=== PATIENT | male | born 1940 | race Caucasian/White ===

== ENCOUNTER → 2016-07-17 | Outpatient (CLI) | payer OTHER | LOC: BHFA 12:45 | PROVIDERS: ATTEND Internal Medicine Cardiovascular Disease | DX: I25.10 Atherosclerotic heart disease of native coronary artery without angina pectoris (principal); I10 Essential (primary) hypertension; E78.5 Hyperlipidemia, unspecified; I25.5 Ischemic cardiomyopathy ==

== ENCOUNTER → 2017-02-13 | Outpatient (CLI) | payer OTHER | LOC: BHFA 08:30 | PROVIDERS: ATTEND Internal Medicine Cardiovascular Disease | DX: I25.10 Atherosclerotic heart disease of native coronary artery without angina pectoris (principal) | CPT/HCPCS: 78452; 93017; A9500 ==

== ENCOUNTER → 2017-03-31 | Outpatient (CLI) | payer OTHER | LOC: BHFA 08:00 | PROVIDERS: ATTEND Internal Medicine Cardiovascular Disease | DX: I42.9 Cardiomyopathy, unspecified (principal) | CPT/HCPCS: 78472; A9560 ==

== ENCOUNTER 2017-04-17 07:40 | Day surgery (SDC) | payer OTHER ==
[2017-04-17] MEDS ORDERED: BIVALIRUDIN 250 MG/5 ML VIAL IV ONE ×2 (07:41→09:46)
[2017-04-17] MEDS ORDERED: ADENOSINE 90 MG/30 ML VIAL IV ONE ×2 (07:41→09:55)
[2017-04-17] MEDS ORDERED: DIAZEPAM 5 MG TAB PO ONE (07:42)
[2017-04-17] MEDS ORDERED: ASPIRIN EC 325 MG TAB PO ONE ×2 (07:42→08:05)
[2017-04-17] MEDS ORDERED: diphenhydrAMINE 25 MG CAP PO ONE ×2 (07:42→08:04)
[2017-04-17] MEDS ORDERED: NS 1,000 ML IV ONE (07:42)
[2017-04-17] MEDS ORDERED: FAMOTIDINE 20 MG TAB PO ONE (07:42)
--- NOTE | 2017-04-17 08:03 | CPEKG ---
Heart Rate: 60 RR Interval: 1000 P-R Interval: 168 QRSD Interval: 110 QT Interval: 456 QTC Interval: 456 P Dickey: -24 QRS Dickey: 11 T Wave Dickey: 140 EKG Severity - ABNORMAL ECG - EKG Impression: SINUS RHYTHM EKG Impression: NONSPECIFIC INTRAVENTRICULAR CONDUCTION DELAY EKG Impression: PROBABLE LEFT VENTRICULAR HYPERTROPHY Electronically Signed By: Dillon Montaño 17-Apr-2017 12:05:02
[2017-04-17] MEDS ORDERED: DIAZEPAM 5 MG TAB ONE (08:05)
[2017-04-17] MEDS ORDERED: FAMOTIDINE 20 MG TAB ONE (08:05)
[2017-04-17 08:16] LABS: ADD DIFF? NO; ADD MORPH? NO; ADD SCAN? NO; ATYPICAL LYMPHOCYTE FLAG 10 (0-99); FRAGMENT RBC FLAG 0 (0-99); HEMATOCRIT 44.8 % (40.0-51.0); HEMOGLOBIN 15.6 g/dL (13.7-17.5); LEFT SHIFT FLG 0 (0-99); LIPEMIA HEMOLYSIS FLAG 90 (0-99); MEAN CELL HEMOGLOBIN 30.8 pg (27.9-34.1); MEAN CELL HEMOGLOBIN CONCENTR. 34.8 g/dL (32.4-36.7); MEAN CELL VOLUME 88.5 fL (81.5-99.8); MEAN PLATELET VOLUME 10.5 fL (8.7-11.7); PLATELET CLUMPS FLAG 0 (0-99); PLATELET COUNT 209 10^3/uL (150-400); RED BLOOD CELL COUNT 5.06 10^6/uL (4.40-6.38); RED CELL DISTRIBUTION WIDTH 12.7 % (11.5-15.2)
[2017-04-17 08:24] LABS: INR 1.09 (0.83-1.16)
[2017-04-17 08:33] LABS: ANION GAP 14 mEq/L (8-16); CALCIUM 9.3 mg/dL (8.5-10.4); CARBON DIOXIDE 26 mEq/l (22-31); CHLORIDE 104 mEq/L (97-110); CHOLESTEROL 215 mg/dL (140-220); CHOLESTEROL/HDL RATIO 4.13 RATIO (1.00-4.97); GLOMERULAR FILTRATION RATE > 60; GLUCOSE 93 mg/dL (70-100); HIGH DENSITY LIPOPROTEIN 52 mg/dL (40-65); LDL/HDL RATIO 2.77 RATIO (1.00-3.64); LOW DENSITY LIPOPROTEIN 144 mg/dL (80-100); MAGNESIUM 1.8 mg/dL (1.6-2.3); NON-HIGH DENSITY LIPOPROTEIN 163 mg/dL (90-129); POTASSIUM 4.3 mEq/L (3.5-5.2); SODIUM 144 mEq/L (134-144); TRIGLYCERIDE 99 mg/dL (40-150); VERY LOW DENSITY LIPOPROTEINS 19 mg/dL (8-25)
[2017-04-17] MEDS ORDERED: MIDAZOLAM 2 MG/2 ML VIAL ONE (08:47)
[2017-04-17] MEDS ORDERED: fentaNYL 100 MCG/2 ML INJ ONE (08:47)
[2017-04-17] MEDS ORDERED: LIDOCAINE 1% 300 MG/30 ML SDV ONE (08:47)
[2017-04-17] MEDS ORDERED: IOPAMIDOL (ISOVUE-370) 150 ML BTL IV ONE ×2 (08:48→09:51)
--- NOTE | 2017-04-17 09:03 | PDPROPOC ---
Sedation Plan of Care Sedation Plan of Care: vital signs stable, mental status noted, patient educated of risks, benefits, alternatives, patient can tolerate sedation ASA Classification: ASA 1 Planned drugs: fentanyl, midazolam Mallampati Score: Class 1 Mallampati Reference Image: Patient passed 3-3-2 rule?: Yes
--- NOTE | 2017-04-17 09:04 | PDGENHP ---
History and Physical History and Physical: No changes to physical examination in comparison to outpatient office note No new cardiovascular complaints were voiced this morning. Risks and benefits of the procedure were discussed with the patient and . Further recommendations after completion of the diagnostic angiogram
[2017-04-17] MEDS ORDERED: HEPARIN 10,000 UNIT/10 ML MDV ONE (09:46)
[2017-04-17] MEDS ORDERED: ATROPINE SULFATE 1 MG/10 ML SYR ONE (09:48)
--- NOTE | 2017-04-17 10:39 | PDDXCAT ---
Diagnostic Cath Note - . Date: 04/17/17 Repairer Evaporator: Danyel High-risk criteria on non-invasive testing: severe resting left ventricular dysfunction (LVEF<35%) - Procedure Access: right groin Procedure: left heart catheterization, coronary angiography - Materials Left Heart Cath size: 6F Left Heart Cath materials: standard multipack (JL4, JR4, pigtail) - Findings-Left Heart Catheterization LM: Medium sized vessel with bifuration into the LAD and LCX. No luminal irregularities were noted. LAD: Medium sized vessel with stent to the proximal vessel. In the distal stent , there are luminal irregularities that appear to be 60-70%. No obvious diagonals were noted (or if present, were ghost vessels with very limited left to left collaterals. A small LOGAN was noted in the mid LAD with back flow. LCX: Medium diameter vessel with small OM in the distal LCX (suggestive of absent OM in the more proximal LCX). Diffuse, non critical disease was noted. RCA: Medium diameter vessel with patent stents from the mid vessel to distal vessel. Just distal to the last stent, there appears to be a critical lesion ( visually) with 60-70% stenosis. RCA is dominant. Tenting to the PDA was noted without back flow into SVG. rSVG: rSVG to the PDA was known to be down in past. rSVG to Diag and OM was widely patent. No obvious back flow from the Diag or OM into the LAD or LCX was noted. Distal flow was brisk and without signficant stenoses distal to the touch down of the vein graft LOGAN: atretic vessel was patent EDP: not assessed LVEF: not assessed (MUGA was 23%) Wall motion: not assessed Complications: none Estimated blood loss: <50ml Closure method: Angioseal Assessment: 76 y/o male with CAD s/p CABG (4V, rSVG to PDA, rSVG to D/OM, and LOGAN to LAD with known occlusion of the PDA graft and very atretic LOGAN), with new, severe reduction in LVEF noted (from 40's to 20's by both MPI and MUGA testing). No collette symptoms, but exercise tolerance has dropped noticably by patient and . Two lesions were noted - one to the LAD (distal stent) and one to the RCA (distal stent). Plan: Dr. Tony Del Angel is going to perform FFR on both lesions to determine if severe. Intervention: pending Patient Problems: Problems Problem Status Onset Inguinal hernia Active Lumbar radiculopathy Active Acute ST segment elevation myocardial infarction Acute Cardiomyopathy, ischemic Acute Chronic Disease Mgmt/Transitional Care Acute Coronary artery disease Acute S/P coronary artery stent placement Acute
[2017-04-17] MEDS ORDERED: NITROGLYCERIN 0.4 MG BTL SL PRN (10:56)
[2017-04-17] MEDS ORDERED: ATROPINE SULFATE 1 MG/10 ML SYR IVP PRN (10:56)
[2017-04-17] MEDS ORDERED: ONDANSETRON 4 MG/2 ML VIAL IVP PRN (10:56)
--- NOTE | 2017-04-17 16:17 | CPIP ---
[f rep st] INVASIVE CARDIAC PROCEDURE DATE OF PROCEDURE: 04/17/2017 PROCEDURES PERFORMED: 1. Coronary angiography. 2. Fractional flow reserve of left anterior descending coronary artery. 3. Fractional flow reserve of right coronary artery. INDICATION: 1. Known coronary artery disease, status post previous bypass grafting surgery and inferior myocardi al infarction with subsequent stenting of right coronary artery. 2. New onset cardiomyopathy. 3. Abnormal nuclear stress test. 4. Dyspnea on exertion concerning for an anginal equivalent. ACCESS AND CORONARY ANGIOGRAPHY: Access and coronary angiography were performed by Dr. Dillon Montaño. Coronary angiography was notable for an atretic PHUC graft, an intermediate grade stenosis of the mid left anterior descending coronary artery representing in-stent restenosis, intermediate grade stenos is involving the distal right coronary artery representing in-stent restenosis as well as a de arya l esion distal to the stent. FRACTIONAL FLOW RESERVE OF THE LEFT ANTERIOR DESCENDING CORONARY ARTERY: A 6-Norwegian EBU 3.75 cathete r was advanced to the left main coronary artery and images obtained. Angiography demonstrated a sten t in the mid left anterior descending coronary artery. There was intermediate grade in-stent resteno sis of the previously placed stent. The FFR wire was placed in the distal vessel and position verifi ed by angiography. FFR was obtained after IV infusion of adenosine. The FFR was 0.85, indicating no flow limitation. The FFR wire was then withdrawn back to the catheter and repeat pressure obtained. There was no evidence of drift. FRACTIONAL FLOW RESERVE OF THE RIGHT CORONARY ARTERY: A 6-Norwegian JR4 was advanced to the right coron johnathon artery and images obtained. Angiography confirmed the presence of an intermediate grade stenosis involving the distal right coronary artery just prior to the takeoff of the PDA and the posterior la teral system. The stenosis represented in-stent restenosis as well as de arya lesion. The FFR wire was placed in the distal vessel and position verified by angiography. FFR was obtained after IV infu shireen of adenosine. The FFR was 0.85, indicating no flow limitation. The FFR wire was then withdrawn . There was no evidence of drift. COMPLICATIONS: None. CONCLUSIONS: 1. Intermediate grade stenosis involving the left anterior descending coronary artery and right jadon nary artery. 2. Fractional flow reserve of the left anterior descending coronary artery and right coronary artery . Indicating no flow limitation. 3. Plan is for medical management. /[id number]/MODL
== END 2017-04-17 14:29 | disposition home or self-care (01) ==
LOC: FCATH 07:40
PROVIDERS: ATTEND Internal Medicine Cardiovascular Disease
DX: I25.10 Atherosclerotic heart disease of native coronary artery without angina pectoris (principal); I25.5 Ischemic cardiomyopathy; T82.855A Stenosis of coronary artery stent, initial encounter; R06.02 Shortness of breath; I25.2 Old myocardial infarction; I50.9 Heart failure, unspecified; I11.0 Hypertensive heart disease with heart failure; E78.5 Hyperlipidemia, unspecified; R94.39 Abnormal result of other cardiovascular function study; Z95.5 Presence of coronary angioplasty implant and graft; Z95.1 Presence of aortocoronary bypass graft
CPT/HCPCS: 93005; 93455; 93571; 93572; C1769; C1887; C1760; J0153; J0461; J0583; J1644; J2250; J3010; Q9967

== ENCOUNTER → 2018-06-25 | Outpatient (CLI) | payer OTHER ==
--- NOTE | 2018-06-25 17:39 | ECHO ---
[email or web address] [address] [address] Main: [phone] Fax: Transthoracic Echocardiogram Name: JOSE AYALA MR#: [id number] Study Date: 06/25/2018 Study Time: 02:05 PM Date of : 1940 Age: 77 year(s) Height: 160 cm (63 in.) Weight: 68.95 kg (152 lb.) BSA: 1.72 m2 Gender: Male Examination: Echo Indication: Pre op clearance/hx CABG/KY Image Quality: Good Contrast: Requested by: Cathy Sheridan BP: / Heart Rate: Rhythm: Indication: Pre op clearance/hx CABG/KY Procedure Staff Hoop Flaring Machine Operator Helper: Evita Green RDCS Reading Physician: Houston Guerrero MD Requesting Provider: Conclusions: Mildly dilated left ventricle. The ejection fraction is estimated to be 55-60 %. Diastolic dysfunction is present. . The basilar inferio, mid inferior, and inferoseptal wall segments are akinetic. All remaining LV segments have normal motion. There is mild thickening of the mitral valve leaflets. Trivial mitral valve regurgitation. Minimal aortic cusp calcification is noted. Mild aortic valve regurgitation is present. Trivial to mild tricuspid valve regurgitation. The pulmonary artery pressure is normal. No pericardial effusion. Compared to 04/03/2014, LV function has improved (LVEF was previously 40%). The inferior wall motion abnormallity is similar. Measurements: Chambers Valvular Assessment AV/MV Valvular Assessment TV/PV Normal Normal Normal Name Value Range Name Value Range Name Value Range Ao Thuy (MM): 4.4 cm (2.2 cm-3.7 AV Vmax: 1.47 m/s (1 m/s-1.7 TR Vmax: 1.89 mm/s ( - ) cm) m/s) TR PGmax: 14 mmHg ( - ) IVSd (2D): 0.8 cm (0.6 cm-1.1 AV meanP mmHg ( - ) syst. PAP: 19 mmHg ( - ) cm) AR (PHT): 583 ms ( - ) LVDd (2D): 5.8 cm (4.2 cm-5.9 MV E Vmax: 0.30 m/s ( - ) cm) MV A Vmax: 0.78 m/s ( - ) LVDs (2D): 4.2 cm (2.1 cm-4 MV E/A: 0.38 ( - ) cm) LVPWd (2D): 0.9 cm (0.6 cm-1 cm) LVEF (BP): 59 % (>=55 %) Patient: JOSE AYALA Study Date: 06/25/2018 Page 1 of 2 02:05 PM EF Range: 55-60 % Continued Measurements: Chambers Valvular Assessment AV/MV Valvular Assessment TV/PV Name Value Name Value Name Value LADs: 3.8 cm MV E' Septal: 0.04 m/s CVP (est.): 5 mmHg LADs Lon.2 cm MV E/E' Septal: 7.50 LA Area: 17.7 cm2 MV E/E' Lateral: 4.20 AR Vmax: 4.13 cm/s Additional Vessels Name Value Ao Ascendin.0 cm Findings: Left Ventricle: Mildly dilated left ventricle. No LV hypertrophy. The ejection fraction is estimated to be 55-60 %. Diastolic dysfunction is present. . The basilar inferio, mid inferior, and inferoseptal wall segments are akinetic. All remaining LV segments have normal motion. Right Ventricle: Normal size right ventricle. Left Atrium: The left atrium is normal in size. Atrial septal bowing from right to left. Right Atrium: The right atrium is normal in size. Mitral Valve: There is mild thickening of the mitral valve leaflets. Trivial mitral valve regurgitation. Aortic Valve: The aortic valve is tri-leaflet. Minimal aortic cusp calcification is noted. Mild aortic valve regurgitation is present. Tricuspid Valve: The tricuspid valve is normal in appearance and function. Trivial to mild tricuspid valve regurgitation. The pulmonary artery pressure is normal. Pulmonic Valve: The pulmonic valve is normal in appearance and function. Trivial pulmonic valve regurgitation. Aorta: Borderline ascending aorta dilatation.. The aorta is normal. Pericardium: No pericardial effusion. (No Signature Object) Patient: JOSE AYALA Study Date: 06/25/2018 Page 2 of 2 02:05 PM [id number]
== END ==
LOC: FCP 13:57
PROVIDERS: ATTEND Physician Assistant
DX: I25.5 Ischemic cardiomyopathy (principal); I25.10 Atherosclerotic heart disease of native coronary artery without angina pectoris; I10 Essential (primary) hypertension; E78.5 Hyperlipidemia, unspecified

== ENCOUNTER → 2018-10-18 | Outpatient (CLI) | payer OTHER | LOC: FIMAGING 14:28 | PROVIDERS: ATTEND Family Medicine | DX: M24.811 Other specific joint derangements of right shoulder, not elsewhere classified (principal); M75.31 Calcific tendinitis of right shoulder; M24.821 Other specific joint derangements of right elbow, not elsewhere classified ==

== ENCOUNTER 2018-11-10 18:07 | Emergency (ER) | payer OTHER ==
[2018-11-10] MEDS ORDERED: NS 1,000 ML IV ONE (18:35)
--- NOTE | 2018-11-10 18:35 | EDPHY ---
H & P Stated Complaint: Body aches, left hip pain, back pain, fever Time Seen by Provider: 11/10/18 18:26 HPI/ROS: CHIEF COMPLAINT: Left hip pain and fever HISTORY OF PRESENT ILLNESS: The patient is a 77-year-old man with a history of coronary artery disease who comes to the emergency department complaining of left hip pain as well as low-grade fever to 100.3 at home. He states that he began having body aches about a week ago but thought that it was from doing a lot of remodeling. However his pain has now g rotated to primarily his left hip. It does radiate to his thigh anteriorly as well. He states that he cannot bear weight. Moderate pain with range of motion. No rash. No swelling. No trauma. He also complains of mild left CVA pain, no abdominal pain. No nausea vomiting or diarrhea. No hematuria or dysuria. No upper respiratory symptoms. No cough. No headache or chest pain. Severity: Moderate Modifying factors: Worsened by weight-bearing and movement REVIEW OF SYSTEMS: Constitutional: denies: chills, fever, recent illness, recent injury EENTM: denies: blurred vision, double vision, nose congestion Respiratory: denies: cough, shortness of breath Cardiac: denies: chest pain, irregular heart rate, lightheadedness, palpitations Gastrointestinal/Abdominal: denies: abdominal pain, diarrhea, nausea, vomiting, blood streaked stools Genitourinary: denies: dysuria, frequency, hematuria, pain Musculoskeletal: denies: joint pain, muscle pain Skin: denies: lesions, rash, jaundice, bruising Neurological: denies: headache, numbness, paresthesia, tingling, dizziness, weakness Hematologic/Lymphatic: denies: blood clots, easy bleeding, easy bruising Immunologic/allergic: denies: HIV/AIDS, transplant 10 systems reviewed and negative except as noted EXAM: GENERAL: Well-appearing, well-nourished and in no acute distress. HEAD: Atraumatic, normocephalic. EYES: Pupils equal round and reactive to light, extraocular movements intact, sclera anicteric, conjunctiva are normal. ENT: TMs normal, nares patent, oropharynx clear without exudates. Moist mucous membranes. NECK: Normal range of motion, supple without lymphadenopathy or JVD. LUNGS: Breath sounds clear to auscultation bilaterally and equal. No wheezes rales or rhonchi. HEART: Regular rate and rhythm without murmurs, rubs or gallops. ABDOMEN: Soft, nontender, normoactive bowel sounds. No guarding, no rebound. No masses appreciated. BACK: No CVA tenderness, no spinal tenderness, step-offs or deformities EXTREMITIES: Moderate pain with range of motion of left hip. Significant pain with weight-bearing. No visual rash or swelling. Crepitus. Normal range of motion, no pitting or edema. No clubbing or cyanosis. NEUROLOGICAL: Cranial nerves II through XII grossly intact. Normal speech, painful gait. 5/5 strength, normal movement in all extremities, normal sensation, normal reflexes PSYCH: Normal mood, normal affect. SKIN: Warm, dry, normal turgor, no visible rashes or lesions. Source: Patient, Family Exam Limitations: No limitations - Personal History Current Tetanus Diphtheria and Acellular Pertussis (TDAP): Yes - Medical/Surgical History Hx Asthma: No Hx Chronic Respiratory Disease: No Hx Diabetes: No Hx Cardiac Disease: Yes Hx Renal Disease: No Hx Cirrhosis: No Hx Alcoholism: No Hx HIV/AIDS: No Hx Splenectomy or Spleen Trauma: No Other PMH: CABG 4 vessel 7ya, 5 stents placed over past few years, HTN, possible hernia, chronic back pain - Family History Significant Family History: No pertinent family hx - Social History Smoking Status: Never smoked Alcohol Use: Sober Drug Use: None Constitutional: Initial Vital Signs Temperature (C) 37.9 C 11/10/18 18:15 Heart Rate 93 11/10/18 18:15 Respiratory Rate 16 11/10/18 18:15 Blood Pressure 142/84 H 11/10/18 18:15 O2 Sat (%) 93 11/10/18 18:15 O2 Delivery Mode Room Air Allergies/Adverse Reactions: No Known Allergies Allergy (Verified 12/24/12 06:18) Home Medications: Medication Instructions Recorded Aspirin [Aspirin 81mg (*)] 81 mg PO HS 04/01/14 Losartan Potassium [Cozaar 50 mg 100 mg PO DAILY #30 tab 04/03/14 (*)] Carvedilol [Coreg (*)] 25 mg PO BIDMEAL 04/17/17 Cholecalciferol Vit D3 [Vitamin D3 1,000 units PO DAILY 04/17/17 (*)] Furosemide [Lasix 20 MG (*)] 20 mg PO DAILY 04/17/17 Herbals/Supplements -Info Only 1 ea PO DAILY 04/17/17 Naproxen Sodium [Aleve 220 MG (*)] 220 mg PO DAILY PRN 04/17/17 Nitroglycerin [Nitrostat 0.4 mg 0.4 mg SL Q5M PRN 04/17/17 (*)] Garland-3 Fatty Acids [Fish Oil 1000 1,000 mg PO DAILY 04/17/17 mg (*)] Hydrocodone/APAP 5/325 [Nunn 1 - 2 tab PO Q4H PRN #10 tab 11/10/18 5/325 (RX)] Medical Decision Making - Diagnostics EKG Interpretation: An EKG obtained and was read and documented in trace view. Please see trace view for full reading and report. Sinus rhythm, no acute ischemic changes, unchanged from previous Imaging: Discussed imaging studies w/ installer helper Radiologist ED Course/Re-evaluation: 8:20 p.m. Patient's lab work is reassuring. CT is normal. No joint effusion. I observed the patient ambulating. He has pain with weight-bearing but has normal strength. He is able to flex his hip without difficulty. Pain seems to generate from his low back. This is consistent with a degenerative disease seen on CT scan. No weakness numbness or paralysis. No bowel or bladder abnormalities. I will give him a dose of steroids and Vicodin and have him follow up with the rac specialist. He and his spouse agree with this plan. Did discuss admission but they declined. Gave them strict return precautions. Differential Diagnosis: Partial list of the Differential diagnosis considered include but were not limited to; radiculopathy, infection, septic joint, muscle strain and although unlikely based on the history and physical exam, I also considered fasciitis, urinary tract infection, kidney stone, diverticulitis, abscess. I discussed these differential diagnoses and the plan with the patient as well as the usual and expected course. The patient understands that the diagnosis is provisional and that in medicine we are not always correct and that further workup is often warranted. Usual and customary warnings were given. All of the patient's questions were answered. The patient was instructed to return to the emergency department should the symptoms at all worsen or return, otherwise to followup with the physician as we discussed. - Data Points Laboratory Results: Laboratory Results 11/10/18 18:50 11/10/18 18:50 Medications Given: Discontinued Medications Acetaminophen (Tylenol) 1,000 mg PO EDNOW ONE Stop: 11/10/18 18:38 Last Admin: 11/10/18 19:10 Dose: 1,000 mg Hydrocodone Bitart/Acetaminophen (Nunn 5/325) 1 tab PO EDNOW ONE Stop: 11/10/18 20:21 Last Admin: 11/10/18 21:05 Dose: 1 tab Hydrocodone Bitart/Acetaminophen (Nunn 5/325mg Prepack#6) 1 btl TAKEHOME EDNOW ONE Stop: 11/10/18 20:30 Last Admin: 11/10/18 21:04 Dose: 1 btl Dexamethasone (Decadron) 10 mg PO EDNOW ONE Stop: 11/10/18 20:21 Last Admin: 11/10/18 21:14 Dose: Not Given Sodium Chloride (Ns) 1,000 mls @ 0 mls/hr IV ONCE ONE; Wide Open PRN Reason: Protocol Stop: 11/10/18 18:36 Last Admin: 11/10/18 19:05 Dose: 1,000 mls Departure - Departure Disposition: Home, Routine, Self-Care Clinical Impression: Lumbar radiculopathy Condition: Fair Instructions: Hydrocodone/Acetaminophen (By mouth), Lumbar Radiculopathy (ED) Referrals: Hector Bradshaw DO [Primary Care Provider] - As per Instructions Dougie Liu MD [Medical Doctor] - 2-3 days, call for appt. Prescriptions: Hydrocodone/APAP 5/325 [Nunn 5/325 (RX)] 1 - 2 tab PO Q4H PRN #10 tab PRN Reason: Pain, Moderate
[2018-11-10] MEDS ORDERED: ACETAMINOPHEN 500 MG TAB PO ONE (18:37)
--- NOTE | 2018-11-10 19:00 | CPEKG ---
Test Reason : OPEN Blood Pressure : / mmHG Vent. Rate : 080 BPM Atrial Rate : 080 BPM P-R Int : 188 ms QRS Dur : 107 ms QT Int : 386 ms P-R-T Axes : -22 -10 -09 degrees QTc Int : 446 ms Sinus rhythm Probable left ventricular hypertrophy Inferior infarct, old Confirmed by Christopher Clark ([id number]) on 11/10/2018 7:00:28 PM Referred By: CHRISTOPHER CLARK Confirmed By:Christopher Clark
[2018-11-10 19:07] LABS: PLATELET COUNT 253 10^3/uL (150-400)
[2018-11-10 19:16] LABS: INR 1.11 (0.83-1.16); PROTIME(PATIENT) 13.9 SEC (12.0-15.0)
[2018-11-10] MEDS ORDERED: IOPAMIDOL (ISOVUE-300) 100 ML BTL ONE (19:37)
[2018-11-10] MEDS ORDERED: DEXAMETHASONE 4 MG TAB PO ONE (20:20)
[2018-11-10] MEDS ORDERED: HYDROCODONE/APAP 5/325 TAB PO ONE (20:20)
[2018-11-10] MEDS ORDERED: HYDROCOD/APAP 5/325 PREPACK#6 BTL TAKEHOME ONE ×2 (20:29→20:30)
[2018-11-10 21:16] VITALS: BP 132/70
== END 2018-11-10 21:18 | disposition home or self-care (01) ==
DX: M51.16 Intervertebral disc disorders with radiculopathy, lumbar region (principal); M16.0 Bilateral primary osteoarthritis of hip; E86.9 Volume depletion, unspecified; I10 Essential (primary) hypertension; Z95.1 Presence of aortocoronary bypass graft
CPT/HCPCS: 74177; 93005; 99285; Q9967